=== PATIENT | female | born 1950 | race Caucasian/White ===

== ENCOUNTER 2017-07-12 20:23 | Emergency (ER) | payer MEDICARE ==
[~2017-07-12] VITALS: Ht 165.1 cm; Wt 70.0 kg
[~2017-07-12 20:23] MED LIST: LEVO-T100 MCG PO; LOSARTAN POT50 MG PO; NAPROSYN500 MG PO; PERCOCET 5/325M1 TAB PO; PROZAC10 MG PO
[2017-07-12 21:42] LABS: INFLUENZA A NONE DETECTED (NONE DETECT); INFLUENZA B NONE DETECTED (NONE DETECT)
[2017-07-12] MEDS ORDERED: CEPHALEXIN500 MG PO (21:56)
[2017-07-12] MEDS ORDERED: ROBITUSSIN AC10 ML PO (21:56)
[2017-07-12 22:20] VITALS: BP 144/88
== END 2017-07-12 22:20 | disposition home or self-care (01) ==
LOC: ED 20:23
PROVIDERS: Emergency Medicine
DX: J06.9 Acute upper respiratory infection, unspecified (principal); R05 Cough; R50.9 Fever, unspecified